=== PATIENT | male | born 1990 | race Two or more races ===

== ENCOUNTER 2017-06-11 07:08 | Emergency (ER) | payer OTHER ==
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
[2017-06-11 07:12] VITALS: TEMP 99.9; O2SAT 93
[2017-06-11] MEDS ORDERED: AMOXICILLIN/CLAVULANATE POT 875/125 MG TAB PO ONE (07:26)
[2017-06-11] MEDS ORDERED: RALTEGRAVIR 400 MG TAB PO ONE (07:49)
[2017-06-11] MEDS ORDERED: EMTRICITABINE/TENOFOVIR 200MG/300MG TAB PO ONE (07:49)
[2017-06-11 08:05] VITALS: BP 123/73; PULSE 101; RESP 19
== END 2017-06-11 08:05 | disposition home or self-care (01) ==
DX: Z77.21 Contact with and (suspected) exposure to potentially hazardous body fluids (principal); S60.311A Abrasion of right thumb, initial encounter; Y04.0XXA Assault by unarmed brawl or fight, initial encounter; Y92.149 Unspecified place in prison as the place of occurrence of the external cause; Y99.8 Other external cause status; Y93.89 Activity, other specified